=== PATIENT | male | born 1990 | race Caucasian/White ===

== ENCOUNTER 2018-12-08 13:45 | Emergency (ER) | payer OTHER ==
[~2018-12-08] VITALS: Ht 170.2 cm; Wt 75.0 kg
[2018-12-08] MEDS ORDERED: HYDR1CRE28 PR (13:51)
[2018-12-08] MEDS ORDERED: PRED20TA PO (14:25)
[2018-12-08] MEDS ORDERED: methylPREDNISolone INJ 125 MG/2 ML VIAL (J2930) IM ONE (14:30)
[2018-12-08 14:53] VITALS: BP 128/76
== END 2018-12-08 15:08 | disposition home or self-care (01) ==
LOC: M ED 13:45
DX: L20.9 Atopic dermatitis, unspecified (principal); Z79.899 Other long term (current) drug therapy; Z88.5 Allergy status to narcotic agent
CPT/HCPCS: 96372; 99283; J2930